=== PATIENT | female | born 1935 | race Caucasian/White ===

== ENCOUNTER 2019-11-24 22:43 | Inpatient (IN) | payer MEDICARE ==
[~2019-11-24] VITALS: Ht 160 cm; Wt 65.1 kg
[~2019-11-24 22:43] MED LIST: ALPR0.5T10 PO; CHOL200074 PO; CRAN400C PO; LISI1TAB23 PO; OMEP40CA45 PO; SIMV20TA18 PO
[2019-11-25] VITALS (7 sets, daily range): BP systolic 100–169; BP diastolic 46–69
[2019-11-25 05:08] LABS: BASO % 0 % (0-3); EOS % 0 % (0-3); HEMATOCRIT 36.9 % (36.0-47.0); HEMOGLOBIN 12.3 g/dL (12.0-15.5); LYMPH # 1.9 x10^3/uL (1.0-4.8); LYMPH % 21 % (24-48); MEAN CORPUSCULAR HEMOGLOBIN 29 pg (25-35); MEAN CORPUSCULAR HGB CONC 33 g/dL (31-37); MEAN CORPUSCULAR VOLUME 86 fL (79-100); MONO # 1.1 x10^3/uL (0.0-1.1); MONO % 12 % (0-9); NEUT # 6.3 x10^3/uL (1.8-7.7); NEUT % 67 % (31-73); PLATELET COUNT 189 x10^3/uL (140-400); RED BLOOD COUNT 4.28 x10^6/uL (3.50-5.40); RED CELL DISTRIBUTION WIDTH 15.2 % (11.5-14.5); WHITE BLOOD COUNT 9.4 x10^3/uL (4.0-11.0)
[2019-11-25 05:32] LABS: ALBUMIN 3.6 g/dL (3.4-5.0); ALBUMIN/GLOBULIN RATIO 1.1 (1.0-1.7); CALCIUM 8.4 mg/dL (8.5-10.1); CREATININE 1.2 mg/dL (0.6-1.0); GFR 42.8; TOTAL BILIRUBIN 0.8 mg/dL (0.2-1.0); TOTAL PROTEIN 6.9 g/dL (6.4-8.2)
[2019-11-25] MEDS ORDERED: LISINOPRIL PO SCH (09:00)
[2019-11-25] MEDS: ALPRAZolam 0.5 MG TABLET PO SCH ×2 (09:00→21:00)
[2019-11-25] MEDS ORDERED: [UNRECOGNIZED DRUG - OTHER] PO SCH (09:00)
[2019-11-25] MEDS ORDERED: HYDROCHLOROTHIAZIDE PO SCH (09:00)
[2019-11-25] MEDS: hydroCHLOROthiazide 12.5 MG CAPSULE PO SCH (09:01)
[2019-11-25] MEDS: CHOLECALCIFEROL (VITAMIN D3) 5,000 UNIT CAPSULE PO SCH (09:01)
[2019-11-25] MEDS: LISINOPRIL 10 MG TABLET PO SCH (09:01)
[2019-11-25] MEDS: PANTOPRAZOLE 40 MG TABLET.DR. PO SCH (09:02)
[2019-11-25] MEDS ORDERED: ACETAMINOPHEN 325 MG TABLET. PO PRN (10:00)
--- NOTE | 2019-11-25 10:35 | HP ---
ADMIT DATE: 11/24/2019 HISTORY OF PRESENT ILLNESS: The patient is an 84-year-old female patient who developed severe headache. She also had some nausea, vomiting and was unsteady on her gait. When she arrived to the Emergency Room of [facility], her blood pressure was extremely high at 180/102 and she was extensively investigated, has had a CT scan of the head without contrast, which basically showed the ventricles and sulci are mildly prominent for age. No midline shift or mass effect, moderate patchy low density in the deep subcortical periventricular white matter, no hemorrhage or extra-axial collection. Posterior fossa and brainstem are unremarkable. Visualized paranasal sinuses and mastoid air cells are clear, no apparent calvarial abnormality. Given the new onset of headache, nausea, vomiting as well as unsteady gait, a decision was made to transfer her to [facility] to consult the neurologist. The patient was given her antihypertensive medication that includes lisinopril and they added metoprolol and also was given an extra dose of clonidine and was admitted to [facility] for further evaluation and treatment. PAST MEDICAL HISTORY: Significant for hypertension, anxiety and depression, spinal stenosis, history of DVT and cervical cancer, recurrent UTIs and urinary incontinence, generalized fatigue. PAST SURGICAL HISTORY: Significant for bladder surgery, hysterectomy, appendectomy and vein ligation in 1972. She had right hip fracture, status post repair in 2001. She also had tonsillectomy. FAMILY HISTORY: Both parents are . She has 2 sisters, older and both . She does not know the cause of their . SOCIAL HISTORY: She is , has 2 sons and 1 daughter. She has never smoked, does not drink alcohol. She lives with her . She is retired from [employer]. ALLERGIES: SHE IS APPARENTLY ALLERGIC TO SULFA DRUGS, VALIUM WELL PHENERGAN. MEDICATIONS: She is currently on following medications: She is on atorvastatin calcium 20 mg at bedtime, lisinopril 10 mg once a day, hydrocodone/APAP 5/325 one tablet every 6 hours, escitalopram oxalate 5 mg once a day, alprazolam 0.5 mg twice a day, benzonatate 100 mg 3 times a day, omeprazole 40 mg daily and ergocalciferol/vitamin D 400 units, she takes 800 units once a day. PHYSICAL EXAMINATION: GENERAL: On arrival to the Emergency Room, she looked well and was clearly in no apparent respiratory distress. There was no pallor, jaundice, cyanosis or thyromegaly. No jugular venous distention. No lower limb edema. VITAL SIGNS: Her heart rate on arrival to the Emergency Room was 93, blood pressure was 200/88, temperature was 99.4, respiratory rate was 18, and oxygen saturation was 92%. HEAD, EYES, EARS, NOSE AND THROAT: Showed normocephalic, atraumatic. NECK: Supple. HEART: Showed normal first and second heart sounds. No gallop, rub or murmur. CHEST: Clear to auscultation. No crepitation or rhonchi. ABDOMEN: Distended, soft, nontender. No guarding or rigidity. No organomegaly. All hernial orifice intact. Bowel sounds normal. NEUROLOGIC: She was alert, oriented to time, place and person. She has no obvious focal deficit. All her cranial nerves intact. EXTREMITIES: She moves extremities without difficulty, according to the ER physician as apparently the gait was not tested. LABORATORY DATA: She had an EKG done, which showed that she was in sinus rhythm at 87 beats per minute, left axis deviation, no finding of acute STEMI. She had a CT scan of the head without contrast, which basically showed that the ventricles and sulci are mildly prominent for age, no midline shift or mass effect, moderate patchy low density in the deep subcortical periventricular white matter, no hemorrhage or extra-axial collection. Posterior fossa and brainstem are unremarkable. Visualized paranasal sinuses and mastoid air cells are clear, no apparent calvarial abnormality. Her lab work there showed a white cell count of 10,000, hemoglobin 14, hematocrit 42, MCV 88 and platelet count of 213,000 with normal manual differential. Her chemistry showed a serum sodium 138, potassium 4, chloride 97, bicarbonate 27, anion gap of 14, BUN 12, creatinine 0.8, estimated GFR was 68 mL per minute. Her glucose 132, calcium was 9.2. Her influenza A and B were negative. ASSESSMENT AND PLAN: The patient was treated with Zofran and hydromorphone, clonidine for her severe intractable headache and was transferred to [facility] for further evaluation and to consult the neurologist where I continued all her medications. In fact, by the time she arrived here, her blood pressure I think was low at 100/53. SALAS LAYTON MD DR: GEO/edmund JOB#: [id number] / [id number]
--- NOTE | 2019-11-25 10:44 | PN ---
DATE: 11/25/2019 SUBJECTIVE: The patient is resting slightly propped up in bed, no apparent distress. She continued to have some headache and nausea but no vomiting. She was able to eat this morning. She has not been able to eat the whole day yesterday. She also has marked prominent tremors in her right upper extremity that has resolved. PHYSICAL EXAMINATION: GENERAL: When I saw her this morning, she looked well and was clearly in no apparent respiratory distress. No pallor, jaundice, cyanosis or thyromegaly. No jugular venous distention. No lower limb edema. VITAL SIGNS: Her heart rate was 75, blood pressure was 123/46, temperature was 97.8, respiratory rate was 16, and oxygen saturation was 93%. HEAD, EYES, EARS, NOSE AND THROAT: Showed normocephalic, atraumatic. NECK: Supple. HEART: Normal first and second heart sounds with no gallop or murmur. CHEST: Clear to auscultation. No crepitation or rhonchi. ABDOMEN: Distended, soft, nontender. NEUROLOGIC: She is awake, alert, responding appropriately. All cranial nerves intact. She moves extremities without difficulty. She has no neck rigidity and Kernig's sign was negative. LABORATORY AND DIAGNOSTIC DATA: Her lab work this morning showed a white cell count of 9400, hemoglobin 12, hematocrit 36, MCV 86 and platelet count of 189,000. Her chemistry showed a serum sodium 138, potassium 4, chloride 98, bicarbonate 31, anion gap of 9, BUN 16, creatinine 1.2, estimated GFR was 42 mL per minute. Her glucose 106, calcium was 8.4. Total bilirubin, AST, ALT, alkaline phosphatase were normal. Total protein was 6.9, albumin was 3.6. ASSESSMENT AND PLAN: My plan is to consult Dr. Alva and decide on further management accordingly. I will continue with all her current medications. SALAS LAYTON MD DR: GEO/edmund JOB#: [id number] / [id number]
[2019-11-25 11:31] LABS: C-REACTIVE PROTEIN 4.8 mg/L (0-3.3); CALCIUM 8.4 mg/dL (8.5-10.1); CREATININE 1.1 mg/dL (0.6-1.0); GFR 47.3; POTASSIUM 3.7 mmol/L (3.5-5.1)
--- NOTE | 2019-11-25 13:07 | NUR ---
SS following for discharge planning. SS reviewed pt chart. Pt is from home with spouse and is currently requiring oxygen. SS will continue to follow for discharge planning.
[2019-11-25] MEDS ORDERED: ASPIRIN 325 MG TABLET PO SCH (15:00)
--- NOTE | 2019-11-25 15:01 | PDOC2 ---
NEUROLOGY CONSULT Date of Admission Date of Admission DATE: 11/25/19 TIME: 14:54 Reason for Consult Reason for Consult: Headache Referring Physician Referring Physician: Dr. Carcamo PCP: Ms. Herzog Source Source: Chart review, Patient History of Present Illness History of Present Illness The patient is an 84-year-old right-handed female who felt sick yesterday morning with nausea and diarrhea. She did not take her medications. She then developed a severe frontal headache, 10/[address] [facility] emergency department where she had systolic blood pressure of 180. She was given antihypertensives and today her headache is 1/10. She still feels a little fuzzy in the head. There is no prior history of stroke, seizure, head injury, or history of headache. Past Medical History Cardiovascular: HTN GI: Other (C. difficile) Psych: Anxiety Musculoskeletal: low back pain (Lumbar spinal stenosis), Other (Thoracic compression fracture) Renal/: UTI, Urinary Incontinence, Other (Renal cysts, cervical cancer) Past Surgical History Past Surgical History: Appendectomy, Tonsillectomy, Hysterectomy, Other (Bladder, vein ligation, hip fracture repair) Family History Family History: CAD Social History Social History , no tobacco, no alcohol, retired Current Medications Current Medications Current Medications Simvastatin (Zocor) 20 mg HS PO ; Start 11/25/19 at 21:00 Alprazolam (Xanax) 0.5 mg BID PO ; Start 11/25/19 at 09:00 Vitamin D (Vitamin D3) 5,000 unit DAILY PO Last administered on 11/25/19at 09:01; Start 11/25/19 at 09:00 Non-Formulary Medication (Lisinopril/ Hydrochlorothiazide (Lisinopril-Hctz 10- 12.5 Mg Tab)) 1 each DAILY PO ; Start 11/25/19 at 09:00; Status UNV Pantoprazole Sodium (Protonix) 40 mg DAILYAC PO Last administered on 11/25/19at 09:02; Start 11/25/19 at 07:30 Lisinopril (Prinivil) 10 mg DAILY PO Last administered on 11/25/19at 09:01; Start 11/25/19 at 09:00 Hydrochlorothiazide (Microzide) 12.5 mg DAILY PO Last administered on 11/25/19at 09:01; Start 11/25/19 at 09:00 Acetaminophen (Tylenol) 650 mg PRN Q4HRS PRN PO HEADACHE; Start 11/25/19 at 10:00 Active Scripts Active Reported Cranberry 400 Mg Capsule 84 Mg PO DAILY Vitamin D-3 (Cholecalciferol (Vitamin D3)) 2,000 Unit Capsule 5,000 Unit PO DAILY Lisinopril-Hctz 10-12.5 Mg Tab (Lisinopril/Hydrochlorothiazide) 1 Each Tablet 1 Each PO DAILY Simvastatin 20 Mg Tablet 20 Mg PO DAILY Omeprazole 40 Mg Capsule.dr 40 Mg PO DAILY Alprazolam 0.5 Mg Tab.rapdis 0.5 Mg PO BID Allergies Allergies: Coded Allergies: Sulfa (Sulfonamide Antibiotics) (Verified Allergy, Intermediate, rash, 10/08/13) diazepam (Verified Allergy, Unknown, 11/24/19) promethazine (Verified Allergy, Unknown, 11/24/19) ROS Review of System Negative for fever, chills, weight loss, shortness of breath, chest pain, indigestion, hematochezia, melena, and dysuria. Full 14-point review of systems is negative. Physical Exam Physical Examination General: Well-developed, well-nourished white female in no acute distress HEENT: Normocephalic andatraumatic. Temporal arteriespulsatile and nontender.Fundoscopic exam unremarkable Neck: Supple without bruit, no meningismus Musculoskeletal: Stability:see neurologic. Gait exam:see neurologic. Tone:see maicol rologic.Strength:see neurologic. Neurological: Mental Status:intact, orientation, memory, attention span/concentration, lang uage, fund of knowledge normal. Cranial Nerves:Pupils equal and reactive to light, extraocular movements areintact, visual turner are full to confrontation. Facial sensation is normal. There is no facial asymmetry. Vestibulo-ocular reflex is intact. Palate elevates and tongue protrudes in midline. All other cranial related problems are negative except as mentioned before.Reflexes:2+ and symmetric with flexor plantar responses. Motor:5/5 strength with normal tone and bulk. Coordination:Finger-nose finger and mdfu-wy-pdco testing are normal. Rapid alternating movements and fine finger movements are intact. Gait:Normal, including tandem. Sensory:Normal pinprick, vibration, light touch, proprioception. Vitals VITALS Vital Signs Date Time Temp Pulse Resp B/P (MAP) Pulse Ox O2 Delivery O2 Flow Rate FiO2 11/25/19 11:00 98.0 64 18 108/56 (73) 94 Nasal Cannula 2.0 98.0 Labs Labs Laboratory Tests Test 11/25/19 03:30 11/25/19 11:00 White Blood Count 9.4 x10^3/uL (4.0-11.0) Red Blood Count 4.28 x10^6/uL (3.50-5.40) Hemoglobin 12.3 g/dL (12.0-15.5) Hematocrit 36.9 % (36.0-47.0) Mean Corpuscular Volume 86 fL (79-100) Mean Corpuscular Hemoglobin 29 pg (25-35) Mean Corpuscular Hemoglobin Concent 33 g/dL (31-37) Red Cell Distribution Width 15.2 % (11.5-14.5) Platelet Count 189 x10^3/uL (140-400) Neutrophils (%) (Auto) 67 % (31-73) Lymphocytes (%) (Auto) 21 % (24-48) Monocytes (%) (Auto) 12 % (0-9) Eosinophils (%) (Auto) 0 % (0-3) Basophils (%) (Auto) 0 % (0-3) Neutrophils # (Auto) 6.3 x10^3/uL (1.8-7.7) Lymphocytes # (Auto) 1.9 x10^3/uL (1.0-4.8) Monocytes # (Auto) 1.1 x10^3/uL (0.0-1.1) Eosinophils # (Auto) 0.0 x10^3/uL (0.0-0.7) Basophils # (Auto) 0.0 x10^3/uL (0.0-0.2) Sodium Level 138 mmol/L (136-145) 138 mmol/L (136-145) Potassium Level 4.0 mmol/L (3.5-5.1) 3.7 mmol/L (3.5-5.1) Chloride Level 98 mmol/L (98-107) 98 mmol/L (98-107) Carbon Dioxide Level 31 mmol/L (21-32) 33 mmol/L (21-32) Anion Gap 9 (6-14) 7 (6-14) Blood Urea Nitrogen 16 mg/dL (7-20) 21 mg/dL (7-20) Creatinine 1.2 mg/dL (0.6-1.0) 1.1 mg/dL (0.6-1.0) Estimated GFR (Cockcroft-Gault) 42.8 47.3 BUN/Creatinine Ratio 13 (6-20) Glucose Level 106 mg/dL (70-99) 103 mg/dL (70-99) Calcium Level 8.4 mg/dL (8.5-10.1) 8.4 mg/dL (8.5-10.1) Total Bilirubin 0.8 mg/dL (0.2-1.0) Aspartate Amino Transf (AST/SGOT) 19 U/L (15-37) Alanine Aminotransferase (ALT/SGPT) 12 U/L (14-59) Alkaline Phosphatase 61 U/L (46-116) Total Protein 6.9 g/dL (6.4-8.2) Albumin 3.6 g/dL (3.4-5.0) Albumin/Globulin Ratio 1.1 (1.0-1.7) Erythrocyte Sedimentation Rate 15 (0-25) C-Reactive Protein, Quantitative 4.8 mg/L (0-3.3) Laboratory Tests Test 11/25/19 03:30 11/25/19 11:00 White Blood Count 9.4 x10^3/uL (4.0-11.0) Red Blood Count 4.28 x10^6/uL (3.50-5.40) Hemoglobin 12.3 g/dL (12.0-15.5) Hematocrit 36.9 % (36.0-47.0) Mean Corpuscular Volume 86 fL (79-100) Mean Corpuscular Hemoglobin 29 pg (25-35) Mean Corpuscular Hemoglobin Concent 33 g/dL (31-37) Red Cell Distribution Width 15.2 % (11.5-14.5) Platelet Count 189 x10^3/uL (140-400) Neutrophils (%) (Auto) 67 % (31-73) Lymphocytes (%) (Auto) 21 % (24-48) Monocytes (%) (Auto) 12 % (0-9) Eosinophils (%) (Auto) 0 % (0-3) Basophils (%) (Auto) 0 % (0-3) Neutrophils # (Auto) 6.3 x10^3/uL (1.8-7.7) Lymphocytes # (Auto) 1.9 x10^3/uL (1.0-4.8) Monocytes # (Auto) 1.1 x10^3/uL (0.0-1.1) Eosinophils # (Auto) 0.0 x10^3/uL (0.0-0.7) Basophils # (Auto) 0.0 x10^3/uL (0.0-0.2) Sodium Level 138 mmol/L (136-145) 138 mmol/L (136-145) Potassium Level 4.0 mmol/L (3.5-5.1) 3.7 mmol/L (3.5-5.1) Chloride Level 98 mmol/L (98-107) 98 mmol/L (98-107) Carbon Dioxide Level 31 mmol/L (21-32) 33 mmol/L (21-32) Anion Gap 9 (6-14) 7 (6-14) Blood Urea Nitrogen 16 mg/dL (7-20) 21 mg/dL (7-20) Creatinine 1.2 mg/dL (0.6-1.0) 1.1 mg/dL (0.6-1.0) Estimated GFR (Cockcroft-Gault) 42.8 47.3 BUN/Creatinine Ratio 13 (6-20) Glucose Level 106 mg/dL (70-99) 103 mg/dL (70-99) Calcium Level 8.4 mg/dL (8.5-10.1) 8.4 mg/dL (8.5-10.1) Total Bilirubin 0.8 mg/dL (0.2-1.0) Aspartate Amino Transf (AST/SGOT) 19 U/L (15-37) Alanine Aminotransferase (ALT/SGPT) 12 U/L (14-59) Alkaline Phosphatase 61 U/L (46-116) Total Protein 6.9 g/dL (6.4-8.2) Albumin 3.6 g/dL (3.4-5.0) Albumin/Globulin Ratio 1.1 (1.0-1.7) Erythrocyte Sedimentation Rate 15 (0-25) C-Reactive Protein, Quantitative 4.8 mg/L (0-3.3) Images Images CT head without contrast dated 11/24/2019, [facility]. Ventricles and sulci are mildly prominent for age. No midline shift or mass effect. Moderate patchy low density in the deep/subcortical periventricular white matter. No hemorrhage or extra axial collection. Posterior fossa and brainstem unremarkable. Visualized paranasal sinuses and mastoid air cells are clear. No apparent calvarial abnormality. IMPRESSION: 1. No evidence of acute intracranial hemorrhage or mass. 2. Mild to moderate chronic small vessel ischemic changes and atrophy. Assessment/Plan Assessment/Plan Impression: Toxic headache due to hypertensive urgency, now resolved, I do not think she had any full-blown hypertensive encephalopathy and she certainly has a normal neurological exam now as well as a normal head CT last night at [facility]. Recommendations: Continue daily aspirin Observe overnight Treat high blood pressure Aim for discharge tomorrow Thank you for letting me help with the patient's care. NEVA ESPINOSA MD Nov 25, 2019 15:01
[2019-11-25] MEDS: HYDROcodone/APAP 5/325MG 1 TAB TABLET PO PRN (18:08)
[2019-11-25] MEDS ORDERED: ONDANSETRON PF 4 MG/2 ML VIAL. IVP PRN (18:15)
[2019-11-25] MEDS ORDERED: cloNIDine TTS-1 1 PATCH PATCH.TDWK TD SCH (20:30)
[2019-11-25] MEDS: SIMVASTATIN 20 MG TABLET PO SCH (20:53)
[2019-11-25] MEDS: fentaNYL PF VIAL 100 MCG/2 ML VIAL IVP PRN (20:54)
[2019-11-26 03:20] VITALS: BP 148/71
[2019-11-26] MEDS: fentaNYL PF VIAL 100 MCG/2 ML VIAL IVP PRN (04:04)
[2019-11-26 07:41] VITALS: BP 121/52
[2019-11-26] MEDS: hydroCHLOROthiazide 12.5 MG CAPSULE PO SCH (08:50)
[2019-11-26] MEDS: PANTOPRAZOLE 40 MG TABLET.DR. PO SCH (08:50)
[2019-11-26] MEDS: ALPRAZolam 0.5 MG TABLET PO SCH ×2 (08:50→20:56)
[2019-11-26] MEDS: HYDROcodone/APAP 5/325MG 1 TAB TABLET PO PRN (08:50)
[2019-11-26] MEDS: ASPIRIN CHEWABLE 81 MG TABLET. PO SCH (08:51)
[2019-11-26] MEDS: CHOLECALCIFEROL (VITAMIN D3) 5,000 UNIT CAPSULE PO SCH (08:51)
[2019-11-26] MEDS: LISINOPRIL 10 MG TABLET PO SCH (08:51)
--- NOTE | 2019-11-26 08:51 | PDOC ---
PROGRESS NOTES Assessment Toxic headache due to hypertensive urgency, headache returned last night when blood pressure spiked, now headache is gone again She is complaining of continued nausea, has not taken anything by mouth Plan I ordered some IV fluid, further management per internal medicine Continue daily aspirin Treat high blood pressure Home when taking by mouth Still no abnormal neurological findings that would require repeat imaging such as an MRI Subjective Complains of nausea, does not feel like eating, denies diplopia, dysphagia, dysarthria, numbness, weakness, vertigo, and headache is currently 1-10/18 Objective Vital Signs Date Time Temp Pulse Resp B/P (MAP) Pulse Ox O2 Delivery O2 Flow Rate FiO2 11/26/19 07:41 98.3 68 18 121/52 (75) 96 Room Air 98.3 11/25/19 20:45 2.0 Intake and Output 11/26/19 07:00 Intake Total 320 ml Balance 320 ml Intake Oral 320 ml # Voids 4 PHYSICAL EXAM Alert. Oriented to time, place and person. PERRL. EOMI. CN: no focal findings. Muscle tone: normal. Muscle strength: 5/5 DTR: 2+ Plantar reflex: flexor Gait: not examined in bed. Sensory exam: no abnormal findings. No cerebellar signs elicited. Review of Relevant I have reviewed the following items divina (where applicable) has been applied. Labs Laboratory Tests Test 11/25/19 03:30 11/25/19 11:00 White Blood Count 9.4 x10^3/uL (4.0-11.0) Red Blood Count 4.28 x10^6/uL (3.50-5.40) Hemoglobin 12.3 g/dL (12.0-15.5) Hematocrit 36.9 % (36.0-47.0) Mean Corpuscular Volume 86 fL (79-100) Mean Corpuscular Hemoglobin 29 pg (25-35) Mean Corpuscular Hemoglobin Concent 33 g/dL (31-37) Red Cell Distribution Width 15.2 % (11.5-14.5) Platelet Count 189 x10^3/uL (140-400) Neutrophils (%) (Auto) 67 % (31-73) Lymphocytes (%) (Auto) 21 % (24-48) Monocytes (%) (Auto) 12 % (0-9) Eosinophils (%) (Auto) 0 % (0-3) Basophils (%) (Auto) 0 % (0-3) Neutrophils # (Auto) 6.3 x10^3/uL (1.8-7.7) Lymphocytes # (Auto) 1.9 x10^3/uL (1.0-4.8) Monocytes # (Auto) 1.1 x10^3/uL (0.0-1.1) Eosinophils # (Auto) 0.0 x10^3/uL (0.0-0.7) Basophils # (Auto) 0.0 x10^3/uL (0.0-0.2) Sodium Level 138 mmol/L (136-145) 138 mmol/L (136-145) Potassium Level 4.0 mmol/L (3.5-5.1) 3.7 mmol/L (3.5-5.1) Chloride Level 98 mmol/L (98-107) 98 mmol/L (98-107) Carbon Dioxide Level 31 mmol/L (21-32) 33 mmol/L (21-32) Anion Gap 9 (6-14) 7 (6-14) Blood Urea Nitrogen 16 mg/dL (7-20) 21 mg/dL (7-20) Creatinine 1.2 mg/dL (0.6-1.0) 1.1 mg/dL (0.6-1.0) Estimated GFR (Cockcroft-Gault) 42.8 47.3 BUN/Creatinine Ratio 13 (6-20) Glucose Level 106 mg/dL (70-99) 103 mg/dL (70-99) Calcium Level 8.4 mg/dL (8.5-10.1) 8.4 mg/dL (8.5-10.1) Total Bilirubin 0.8 mg/dL (0.2-1.0) Aspartate Amino Transf (AST/SGOT) 19 U/L (15-37) Alanine Aminotransferase (ALT/SGPT) 12 U/L (14-59) Alkaline Phosphatase 61 U/L (46-116) Total Protein 6.9 g/dL (6.4-8.2) Albumin 3.6 g/dL (3.4-5.0) Albumin/Globulin Ratio 1.1 (1.0-1.7) Erythrocyte Sedimentation Rate 15 (0-25) C-Reactive Protein, Quantitative 4.8 mg/L (0-3.3) Laboratory Tests Test 11/25/19 11:00 Erythrocyte Sedimentation Rate 15 (0-25) Sodium Level 138 mmol/L (136-145) Potassium Level 3.7 mmol/L (3.5-5.1) Chloride Level 98 mmol/L (98-107) Carbon Dioxide Level 33 mmol/L (21-32) Anion Gap 7 (6-14) Blood Urea Nitrogen 21 mg/dL (7-20) Creatinine 1.1 mg/dL (0.6-1.0) Estimated GFR (Cockcroft-Gault) 47.3 Glucose Level 103 mg/dL (70-99) Calcium Level 8.4 mg/dL (8.5-10.1) C-Reactive Protein, Quantitative 4.8 mg/L (0-3.3) Medications Current Medications Simvastatin (Zocor) 20 mg HS PO Last administered on 11/25/19at 20:53; Start 11/25/19 at 21:00 Alprazolam (Xanax) 0.5 mg BID PO ; Start 11/25/19 at 09:00 Vitamin D (Vitamin D3) 5,000 unit DAILY PO Last administered on 11/25/19at 09:01; Start 11/25/19 at 09:00 Non-Formulary Medication (Lisinopril/ Hydrochlorothiazide (Lisinopril-Hctz 10- 12.5 Mg Tab)) 1 each DAILY PO ; Start 11/25/19 at 09:00; Status UNV Pantoprazole Sodium (Protonix) 40 mg DAILYAC PO Last administered on 11/25/19at 09:02; Start 11/25/19 at 07:30 Lisinopril (Prinivil) 10 mg DAILY PO Last administered on 11/25/19at 09:01; Start 11/25/19 at 09:00 Hydrochlorothiazide (Microzide) 12.5 mg DAILY PO Last administered on 11/25/19at 09:01; Start 11/25/19 at 09:00 Acetaminophen (Tylenol) 650 mg PRN Q4HRS PRN PO HEADACHE Last administered on 11/25/19at 16:08; Start 11/25/19 at 10:00 Aspirin (Dimitry Aspirin) 81 mg DAILYWBKFT PO ; Start 11/25/19 at 15:00; Status Cancel Aspirin (Children'S Aspirin) 81 mg DAILYWBKFT PO ; Start 11/26/19 at 08:00 Acetaminophen/ Hydrocodone Bitart (Lortab 5/325) 1 tab PRN Q4HRS PRN PO MODERATE - SEVERE PAIN Last administered on 11/25/19at 18:08; Start 11/25/19 at 18:15 Ondansetron HCl (Zofran) 4 mg PRN Q4HRS PRN IVP NAUSEA/VOMITING Last administered on 11/25/19 18:08; Start 11/25/19 at 18:15 Clonidine HCl (Catapres Tts-1) 1 patch WEEKLY TD Last administered on 11/25/19at 20:53; Start 11/25/19 at 20:30 Fentanyl Citrate (Fentanyl 2ml Vial) 50 mcg PRN Q3HRS PRN IVP PAIN Last administered on 11/26/19at 04:04; Start 11/25/19 at 20:30 Active Scripts Active Reported Cranberry 400 Mg Capsule 84 Mg PO DAILY Vitamin D-3 (Cholecalciferol (Vitamin D3)) 2,000 Unit Capsule 5,000 Unit PO DAILY Lisinopril-Hctz 10-12.5 Mg Tab (Lisinopril/Hydrochlorothiazide) 1 Each Tablet 1 Each PO DAILY Simvastatin 20 Mg Tablet 20 Mg PO DAILY Omeprazole 40 Mg Capsule.dr 40 Mg PO DAILY Alprazolam 0.5 Mg Tab.rapdis 0.5 Mg PO BID Vitals/I & O Vital Sign - Last 24 Hours 11/25/19 11/25/19 11/25/19 11/25/19 09:01 11:00 15:13 19:20 Temp 98.0 98.0 98.2 98.0 98.0 98.2 Pulse 75 64 66 74 Resp 18 18 20 B/P (MAP) 123/46 108/56 (73) 120/55 (76) 169/69 (102) Pulse Ox 94 94 94 O2 Delivery Nasal Cannula Room Air Room Air O2 Flow Rate 2.0 11/25/19 11/25/19 11/26/19 11/26/19 20:45 23:32 03:20 07:41 Temp 98.2 98.5 98.3 98.2 98.5 98.3 Pulse 69 61 68 Resp 16 16 18 B/P (MAP) 129/53 (78) 148/71 (96) 121/52 (75) Pulse Ox 98 95 96 O2 Delivery Nasal Cannula Room Air Room Air Room Air O2 Flow Rate 2.0 Intake and Output 11/25/19 11/25/19 11/26/19 15:00 23:00 07:00 Intake Total 120 ml 100 ml 100 ml Balance 120 ml 100 ml 100 ml NEVA ESPINOSA MD Nov 26, 2019 08:51
[2019-11-26] MEDS: IV DEXTROSE 5 %-0.45 % NACL 1,000 ML IV SCH ×2 (08:56→20:58)
--- NOTE | 2019-11-26 10:24 | PN ---
DATE: 11/26/2019 SUBJECTIVE: The patient is an 84-year-old female patient who was admitted with headache and hypertensive urgency. She is somewhat feeling better today as her headache is somewhat much better. She continued to have nausea and anorexia, although she has attempted to eat some. Her blood pressure is definitely much improved after we added the clonidine patch. Plan is to start with a clear liquid diet and advance as tolerated and if she is remaining stable tomorrow, we can obviously discharge her home. PHYSICAL EXAMINATION: GENERAL: When I saw her this morning, she was resting slightly propped up in bed, in no apparent respiratory distress. No pallor, jaundiced, cyanosed, or thyromegaly. No jugular venous distension. No lower limb edema. VITAL SIGNS: Her heart rate was 68, blood pressure 121/52, temperature was 98.3, respiratory rate was 18 and oxygen saturation was 96% on 2 liters of oxygen. HEAD, EYES, EARS, NOSE AND THROAT: Showed normocephalic, atraumatic. NECK: Supple. HEART: Showed normal first and second heart sounds. No gallop or murmur. CHEST: Clear to auscultation. No crepitation or rhonchi. ABDOMEN: Scaphoid, soft, nontender. NEUROLOGIC: She is awake, alert, responding appropriately. All cranial nerves are intact. She moves extremities without difficulty. ASSESSMENT: Headache due to hypertensive urgency, improving. Her blood pressure is much better controlled now. The patient continued to have nausea and anorexia. She was started on IV fluid by Dr. Alva. I will start her on a clear liquid diet and advance as tolerated. I will also check her orthostatic to make sure that she does not have any postural hypertension when she stands, and if she is able to eat and drink and her headache resolved by tomorrow, she can be discharged home. SALAS LAYTON MD DR: GEO/edmund JOB#: [id number] / [id number]
[2019-11-26 11:24] VITALS: BP 129/60
[2019-11-26 15:26] VITALS: BP 137/66
[2019-11-26 19:15] VITALS: BP 120/68
[2019-11-26] MEDS: SIMVASTATIN 20 MG TABLET PO SCH (20:56)
[2019-11-26 23:15] VITALS: BP 104/70
[2019-11-27 03:17] VITALS: BP 119/65
[2019-11-27 05:33] LABS: ALBUMIN 3.4 g/dL (3.4-5.0); CALCIUM 8.7 mg/dL (8.5-10.1); CREATININE 0.7 mg/dL (0.6-1.0); GFR 79.7; POTASSIUM 3.1 mmol/L (3.5-5.1); TOTAL BILIRUBIN 0.8 mg/dL (0.2-1.0); TOTAL PROTEIN 6.7 g/dL (6.4-8.2)
[2019-11-27 07:25] VITALS: BP 119/69
[2019-11-27] MEDS: hydroCHLOROthiazide 12.5 MG CAPSULE PO SCH (09:04)
[2019-11-27] MEDS: CHOLECALCIFEROL (VITAMIN D3) 5,000 UNIT CAPSULE PO SCH (09:04)
[2019-11-27] MEDS: ASPIRIN CHEWABLE 81 MG TABLET. PO SCH (09:04)
[2019-11-27] MEDS: PANTOPRAZOLE 40 MG TABLET.DR. PO SCH (09:04)
[2019-11-27] MEDS: LISINOPRIL 10 MG TABLET PO SCH (09:05)
[2019-11-27] MEDS: ALPRAZolam 0.5 MG TABLET PO SCH (09:05)
[2019-11-27] MEDS: IV DEXTROSE 5 %-0.45 % NACL 1,000 ML IV SCH (09:06)
[2019-11-27] MEDS ORDERED: POTASSIUM CHLORIDE 20 MEQ TABLET.ER. PO ONE (09:30)
[2019-11-27] MEDS ORDERED: ASPI-630 PO (09:38)
[2019-11-27] MEDS ORDERED: CLON1PAT TD (09:39)
[2019-11-27 10:30] VITALS: BP 131/74
[2019-11-27 10:35] VITALS: BP 140/89
[2019-11-27 10:40] VITALS: BP 140/91
--- NOTE | 2019-11-27 11:49 | NUR ---
Discharge Note: CANDIDA HARRIS [address] [place] [address] Discharge instructions and discharge home medications reviewed with Patient and a copy given. All questions have been answered and understanding verbalized. The following instructions and handouts were given: f/u with pcp within one week. Discontinued lines and drains: Peripheral IV intact. Patient discharged to Home or Self Care with Family Member via Wheelchair
== END 2019-11-27 11:49 | disposition home or self-care (01) | DRG 305 ==
LOC: 6 SOUTH 22:43
PROVIDERS: ADMIT Internal Medicine; ATTEND Internal Medicine
DX: I16.0 Hypertensive urgency (principal); I10 Essential (primary) hypertension; Z82.49 Family history of ischemic heart disease and other diseases of the circulatory system; Z86.718 Personal history of other venous thrombosis and embolism; Z87.440 Personal history of urinary (tract) infections; Z90.710 Acquired absence of both cervix and uterus; F32.9 Major depressive disorder, single episode, unspecified; F41.9 Anxiety disorder, unspecified; Z87.81 Personal history of (healed) traumatic fracture; Z79.899 Other long term (current) drug therapy; Z90.49 Acquired absence of other specified parts of digestive tract
CPT/HCPCS: 36415; 80048; 80053; 85025; 85651; 86140; J2405; J3010; J7042; G0378